=== PATIENT | female | born 1970 | race Caucasian/White ===

== ENCOUNTER 2018-06-08 06:29 | Day surgery (SDC) | payer OTHER ==
[2018-06-08] MEDS ORDERED: METOCLOPRAMIDE 10 MG INJ (08:01)
[2018-06-08] MEDS ORDERED: MEPERIDINE 100 MG INJ (08:01)
[2018-06-08] MEDS ORDERED: ONDANSETRON 4 MG INJ (08:01)
[2018-06-08] MEDS ORDERED: LIDOCAINE 2% (SDV) 5 ML INJ (08:01)
[2018-06-08] MEDS ORDERED: PROPOFOL 20 ML (08:01)
[2018-06-08] MEDS ORDERED: CEFAZOLIN 1 GM INJ (08:01)
[2018-06-08] MEDS ORDERED: LACTATED RINGER'S 1,000 ML IV (08:30)
[2018-06-08] MEDS ORDERED: ONDANSETRON 4 MG INJ IV (09:30)
[2018-06-08] MEDS ORDERED: hydrALAzine 20 MG INJ IV (09:30)
[2018-06-08] MEDS ORDERED: MEPERIDINE 25 MG INJ IV (09:30)
[2018-06-08] MEDS ORDERED: METOCLOPRAMIDE 10 MG INJ IV (09:30)
[2018-06-08] MEDS ORDERED: DIPHENHYDRAMINE 50 MG INJ IV (09:30)
[2018-06-08] MEDS ORDERED: LABETALOL HCL 20MG INJ IV (09:30)
[2018-06-08] MEDS ORDERED: MIDAZOLAM 1 MG/ML 2 ML INJ IV (09:30)
[2018-06-08] MEDS ORDERED: FENTAnyl 50 MCG/ML VIAL IV ×3 (09:30)
[2018-06-08] MEDS ORDERED: EPHEDrine SULFATE 50 MG/5 ML SYG IV (09:30)
[2018-06-08] MEDS ORDERED: OXYCODONE/ACETAMINOPHEN (5/325) TAB PO ×2 (09:30)
[2018-06-08] MEDS ORDERED: KETOROLAC 30 MG INJ IV (09:42)
== END 2018-06-08 11:45 | disposition home or self-care (01) ==
LOC: SDS 06:29
DX: N95.0 Postmenopausal bleeding (principal); E78.5 Hyperlipidemia, unspecified
CPT/HCPCS: 58558; 88305; 93005